=== PATIENT | female | born 1960 | race Native Hawaiian/Other Pacific Islander ===

== ENCOUNTER 2018-04-06 13:05 | Outpatient (CLI) | payer BC ==
[2018-04-06 13:29] LABS: POTASSIUM 4.6 mmol/L (3.6-5.2)
[2018-04-06 13:47] LABS: PLATELET COUNT 366 K/uL (152-353)
== END 2018-04-06 19:18 | disposition home or self-care (01) ==
LOC: LAB 13:05
PROVIDERS: Emergency Medicine Undersea and Hyperbaric Medicine
DX: L03.115 Cellulitis of right lower limb (principal)
CPT/HCPCS: 80053; 82550; 85027

== ENCOUNTER 2018-04-13 11:08 | Outpatient (CLI) | payer BC ==
[2018-04-13 11:34] LABS: PLATELET COUNT 346 K/uL (152-353)
[2018-04-13 11:39] LABS: POTASSIUM 4.6 mmol/L (3.6-5.2)
== END 2018-04-13 20:54 | disposition home or self-care (01) ==
LOC: LAB 11:08
PROVIDERS: Emergency Medicine Undersea and Hyperbaric Medicine
DX: L03.115 Cellulitis of right lower limb (principal)
CPT/HCPCS: 80053; 82550; 85027

== ENCOUNTER 2018-04-20 11:22 | Outpatient (CLI) | payer BC ==
[2018-04-20 12:52] LABS: PLATELET COUNT 401 K/uL (152-353)
[2018-04-20 13:07] LABS: POTASSIUM 4.5 mmol/L (3.6-5.2)
== END 2018-04-20 19:44 | disposition home or self-care (01) ==
LOC: LAB 11:22
PROVIDERS: Emergency Medicine Undersea and Hyperbaric Medicine
DX: M86.171 Other acute osteomyelitis, right ankle and foot (principal); Z45.2 Encounter for adjustment and management of vascular access device; Z51.81 Encounter for therapeutic drug level monitoring; L03.115 Cellulitis of right lower limb
CPT/HCPCS: 80053; 82550; 85027

== ENCOUNTER 2018-04-27 11:47 | Outpatient (CLI) | payer BC ==
[2018-04-27 12:40] LABS: PLATELET COUNT 341 K/uL (152-353)
== END 2018-04-27 20:00 | disposition home or self-care (01) ==
LOC: LAB 11:47
PROVIDERS: Emergency Medicine Undersea and Hyperbaric Medicine
DX: M86.171 Other acute osteomyelitis, right ankle and foot (principal); Z45.2 Encounter for adjustment and management of vascular access device; Z79.2 Long term (current) use of antibiotics; L03.115 Cellulitis of right lower limb
CPT/HCPCS: 80053; 82550; 85027

== ENCOUNTER 2018-05-11 10:59 | Outpatient (CLI) | payer BC ==
[2018-05-11 11:42] LABS: POTASSIUM 4.5 mmol/L (3.6-5.2)
== END 2018-05-11 21:53 | disposition home or self-care (01) ==
LOC: LAB 10:59
PROVIDERS: Emergency Medicine Undersea and Hyperbaric Medicine
DX: L03.115 Cellulitis of right lower limb (principal)
CPT/HCPCS: 80053; 82550

== ENCOUNTER 2018-05-12 10:16 | Outpatient (CLI) | payer BC ==
[2018-05-12 11:20] LABS: PLATELET COUNT 310 K/uL (152-353)
== END 2018-05-12 23:51 | disposition home or self-care (01) ==
LOC: LAB 10:16
PROVIDERS: Emergency Medicine Undersea and Hyperbaric Medicine
DX: L03.115 Cellulitis of right lower limb (principal)
CPT/HCPCS: 85027

== ENCOUNTER 2018-09-11 13:07 | Outpatient (CLI) | payer BC | END 2018-09-11 20:43 | disposition home or self-care (01) | LOC: US 13:07 | DX: L08.9 Local infection of the skin and subcutaneous tissue, unspecified (principal) ==

== ENCOUNTER 2019-01-22 07:17 | Outpatient (CLI) | payer BC ==
[2019-01-22 08:52] LABS: POTASSIUM 4.4 mmol/L (3.6-5.2)
== END 2019-01-22 19:03 | disposition home or self-care (01) ==
LOC: LABW 07:17
PROVIDERS: Nurse Practitioner Family
DX: E10.65 Type 1 diabetes mellitus with hyperglycemia (principal); E78.49 Other hyperlipidemia; E55.9 Vitamin D deficiency, unspecified
CPT/HCPCS: 36415; 80053; 80061; 82043; 82306; 82570; 84443

== ENCOUNTER 2020-07-14 07:45 | Outpatient (CLI) | payer BC ==
[2020-07-14 08:02] LABS: PLATELET COUNT 339 K/uL (152-353)
[2020-07-14 09:06] LABS: POTASSIUM 4.6 mmol/L (3.6-5.2)
== END 2020-07-14 21:46 | disposition home or self-care (01) ==
LOC: LABW 07:45
PROVIDERS: ATTEND Internal Medicine Endocrinology, Diabetes & Metabolism
DX: E11.65 Type 2 diabetes mellitus with hyperglycemia (principal)
CPT/HCPCS: 36415; 80053; 80061; 81000; 82306; 82607; 83036; 85027

== ENCOUNTER 2021-03-10 07:59 | Outpatient (CLI) | payer BC | END 2021-03-10 18:41 | disposition home or self-care (01) | LOC: LABW 07:59 | PROVIDERS: ATTEND Nurse Practitioner Family | DX: E10.65 Type 1 diabetes mellitus with hyperglycemia (principal); E78.5 Hyperlipidemia, unspecified; E55.9 Vitamin D deficiency, unspecified | CPT/HCPCS: 36415; 80053; 80061; 82043; 82306; 82570; 84443 ==

== ENCOUNTER 2022-07-29 12:24 | Outpatient (CLI) | payer BC | END 2022-07-29 19:08 | disposition home or self-care (01) | LOC: CT 12:24 | PROVIDERS: ATTEND Internal Medicine | DX: M54.2 Cervicalgia (principal); R20.2 Paresthesia of skin; R06.02 Shortness of breath; E11.9 Type 2 diabetes mellitus without complications; R51.9 Headache, unspecified ==

== ENCOUNTER 2022-11-28 09:37 | Outpatient (CLI) | payer BC | END 2022-11-28 19:35 | disposition home or self-care (01) | LOC: RAD 09:37 | PROVIDERS: ATTEND Internal Medicine | DX: R05.9 Cough, unspecified (principal); R09.81 Nasal congestion; R50.9 Fever, unspecified ==